=== PATIENT | male | born 1935 | race Caucasian/White ===

== ENCOUNTER 2016-07-06 17:01 | Inpatient (IN) | payer MEDICARE ==
--- NOTE | ~2016-07-06 | DS ---
Discharge Summary [id number] [place]. [address] NAME: MALISSA COSTA : 36 STATUS : DIS IN PAT#: [id number] AGE: 81 ADM/REG DATE : 07/06/16 MR#: [id number] REPORT SERV DATE: 07/11/16 DICTATED BY: CHIRAG LAND DATE: 07/10/16 REPORT STATUS : Draft TRANSCRIBED BY: MODL DATE: 07/10/16 ADMISSION DATE: 07/06/2016 DISCHARGE DATE: 07/10/2016 PROCEDURES DONE: 1. 07/06/2016, chest x-ray: Unstable chest x-ray. 2. 07/08/2016, CT scan without contrast, nonspecific subpleural fibrotic lung disease, chronic with patchy superimposed airspace consolidation involving the right lower lobe. No pleural effusion. Large chronic right-sided diaphragmatic hernia and hernia of the posterior right lung base across the posterior mediastinum into the left lower chest. The liver and duodenum are herniated into the right chest. T8 and T11 vertebral body compression fractures. 3. 07/09/2016, barium swallow study repeated episodes of silent aspiration with consistencies ranging from 10 to pudding. CONSULT: Dr. Fernández for Pulmonary. REASON FOR ADMISSION: Short of breath with bilateral ankle swelling x2 weeks. 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 The patient was sent for further evaluation of this bilateral ankle swelling and shortness of breath. A CT scan of the chest was done. There is herniation in the right side as well as on the left side of the lung. However, the herniation is more extensive on the right. Pulmonary was consulted for further evaluation. Dr. Fernández saw the patient. Recommendations by Pulmonary involved in-surgical intervention regarding the hernia. Unfortunately, the patient did decline any surgical options. In addition, the patient also has positive aspiration. Barium swallow study showed aspiration on all consistencies of thin to pudding consistency. Discussion with the family revolved around further treatment. However, family just wanted to have oxygen. The patient does not seem to want any further intervention regarding diaphragm hernia repair as well as a PEG tube placement for feeding purposes because of the aspiration. Both the son, daughter, and the patient is fully aware of the ramifications of not having treatment plan implemented. Therefore, the patient will be discharged to home with only oxygen. Recommend the patient follow up with Pulmonary within two weeks' time. In addition, we will have Case Management arranged for home oxygen. DISPOSITION: The patient is feeling fine, no complaints. ACTIVITIES: As tolerated. DIET: Regular. INSTRUCTION: The patient will follow up with Pulmonary within two weeks' time. Discharge Summary [address] [facility] [place]. [address] NAME: MALISSA COSTA : 37 STATUS : DIS IN [facility]#: [id number] AGE: 81 ADM/REG DATE : 07/06/16 MR#: [id number] REPORT SERV DATE: 07/11/16 DICTATED BY: CHIRAG LAND DATE: 07/10/16 REPORT STATUS : Draft TRANSCRIBED BY: ANTONELLA DATE: 07/10/16 MEDICATION UPON DISCHARGE: 1. Aspirin 81 mg p.o. q.h.s. 2. Lipitor 40 mg p.o. q.h.s. 3. Bumex 2 mg p.o. daily. 4. Bumex 2 mg p.o. daily p.r.n. 5. Iron 325 mg p.o. daily. 6. Synthroid 100 mcg p.o. daily. 7. Potassium 20 mEq b.i.d. 8. Albuterol two puffs q.4 hours p.r.n. 9. Oxycodone 05/325 one tab daily. DIAGNOSES UPON DISCHARGE: 1. Shortness of breath, bilateral ankle swelling secondary to restrictive lung disease. 2. 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 3. Congestive heart failure, not in acute exacerbation with preserved ejection fraction of 52%. 4. Thrombocytopenia. 5. Hypothyroid. 6. Status post redo coronary artery bypass graft, 2013. 7. Aortic stenosis, status post aortic valve replacement. 8. Sleep apnea. 9. History of hip fracture. 10.Hypothyroidism. 11.Hypertension. 12.Hyperlipidemia. URMILA/ANTONELLA Chirag Land MD / [id number] CC: MD Reynold Brady M.D.
--- NOTE | ~2016-07-06 | HP ---
History And Physical [address] [address] NAME: MALISSA COSTA : 36 STATUS : ADM IN [facility]#: [id number] AGE: 80 ADM/REG DATE : 07/06/16 MR#: [id number] REPORT SERV DATE: 07/06/16 DICTATED BY: TINO CHU DATE: 07/06/16 REPORT STATUS : Draft TRANSCRIBED BY: MODL DATE: 07/06/16 DATE OF ADMISSION: 07/06/2016 ADDENDUM PHYSICAL EXAMINATION: NECK: As he is having mild distress, not able to check the JVD. No nodes palpable. CHEST: He has coarse breathing sounds everywhere on both chest. CARDIOVASCULAR: Has a regular rhythm and rate. Hard to hear heart sounds because of the coarse breathing sounds. Has an aortic regurgitation murmur. ABDOMEN: Bowel sounds present. Soft. No organomegaly appreciated. No ascites appreciated. EXTREMITIES: He has a pitting edema in his both feet and up the ankle. Pulses are intact. LABORATORY: Showed a sodium 134, potassium 4.7, BUN 17, and creatinine 0.76. WBC 4.2, hemoglobin 14.2, hematocrit 43.6, and platelet 82. BNP 273.9. X-ray showed some vascular congestion. Electrocardiogram showed normal sinus rhythm. ASSESSMENT AND PLAN: 1. Acute hypoxic respiratory failure. 2. Status post redo CABG and aortic valve replacement in 2013. 3. Hypothyroidism. 4. Restrictive lung disease clinically. 5. Thrombocytopenia is chronic but is slightly worse. Overall the patient will be admitted to the hospital cardiac telemetry bed. We are going to obtain the echocardiogram to re-evaluate his left ventricle and also valve function since his last echocardiogram was in 2014, with ejection fraction 55% with normal functioning bioprosthetic aortic valve. Meanwhile, we will change his diuretics to IV diuretics and I will also use the bronchodilator and oxygen supplement. EKL/MODL Tino Chu M.D. / [id number] CC: MD Reynold Baker M.D. William Warren, M.D.
--- NOTE | ~2016-07-06 | CN ---
Consultation Report [address] [place]. [address] NAME: MALISSA CARTER : 36 STATUS : ADM IN PAT#: [id number] AGE: 81 ADM/REG DATE : 07/06/16 MR#: [id number] REPORT SERV DATE: 07/10/16 DICTATED BY: TESHA LANG DATE: 07/09/16 REPORT STATUS : Draft TRANSCRIBED BY: MODL DATE: 07/09/16 CONSULTATION REPORT DATE OF CONSULTATION: Dear Dr. Mayers: Thank you for requesting my opinion regarding evaluation and management of Mr. Malissa Carter. Mr. Carter is an extremely pleasant 81-year-old gentleman with a significant past medical history of coronary artery disease, status post CABG redo aortic valve replacement back in 2013 for prolonged hospitalization and came to the hospital with worsening shortness of breath and ankle swelling. The patient states that he has been intermittently compliant with his diuretics. The patient was seen recently and received doxycycline and prednisone with no significant improvement. However, when he arrived in the hospital he received additional diuretics and his ankle swelling has significantly improved as well as shortness of breath. He now states that he has mild shortness of breath at rest while localized to the chest, nonradiating, with no significant alleviating or exacerbating factors. REVIEW OF SYSTEMS: A detailed 14-point review of systems was completed. Pertinent positives and negatives are listed above. PAST MEDICAL HISTORY: 1. Cardiac bypass and redo in 2013. 2. Aortic stenosis status post AVR in 2013. 3. Sleep apnea. 4. History of hip fracture. 5. Hypothyroidism. 6. Congenital diaphragmatic abnormalities on the right side. 7. Hypertension. 8. Hyperlipidemia. 9. Postop atrial fibrillation. PAST SURGICAL HISTORY: 1. Appendectomy. 2. Cholecystectomy. 3. Cardiac surgeries as above. ALLERGIES: SULFA AND CLINDAMYCIN. SOCIAL HISTORY: The patient denies any history of smoking in the past. He denies any significant alcohol or illicit drug abuse. FAMILY HISTORY: No history of coronary artery disease. Consultation Report [id number] [place]. [address] NAME: MALISSA CARTER : 36 STATUS : ADM IN PAT#: [id number] AGE: 81 ADM/REG DATE : 07/06/16 MR#: [id number] REPORT SERV DATE: 07/10/16 DICTATED BY: TESHA LANG DATE: 07/09/16 REPORT STATUS : Draft TRANSCRIBED BY: ANTONELLA DATE: 07/09/16 HOME MEDICATIONS: Reviewed and located in the paper chart. PHYSICAL EXAMINATION: VITAL SIGNS: Afebrile, T-current 98, pulse 2 L nasal cannula 94% FiO2, 109/63. GENERAL: No acute distress. Able to communicate in full paragraphs at a time. HEENT: Normocephalic and atraumatic. Left pupil is round, reactive to light and accommodation. Right-sided prosthetic eye. Posterior oropharynx is clear. NECK: Thin neck. No JVD. CARDIOVASCULAR: Regular rate and rhythm. S1 and S2 present. LUNGS: Clear breath sounds bilaterally. ABDOMEN: Nontender, nondistended. Soft. Positive bowel sounds. EXTREMITIES: No clubbing, cyanosis, or edema. SKIN: No new rashes, lesions, or ulcers. PSYCHIATRIC: Alert and oriented x3. Appropriate mood and affect. Appropriate insight and judgment. NEUROLOGIC: 5/5 strength in upper and lower extremities. Cranial nerves II through XII intact. Gait not tested. DTRs not performed. LABORATORY DATA: White count 3.6, hemoglobin of 14, and platelet count of 81. Procalcitonin negative. Creatinine of 0.83. A pH of 7.39, PaCO2 of 68, PaO2 of 97. IMAGIN. Chest CT performed on 07/08/2016 was personally reviewed by me. I agree with the following interpretation. Nonspecific subpleural fibrotic lung disease and chronic patchy superimposed airspace consolidation in the right lung and pleural effusion. 2. Large chronic right-sided diaphragmatic hernia and hernia as well of the posterior right lung base area and the posterior mediastinum into the left lower of the chest. Liver and duodenum are herniated into the right chest. 3. T8 and T11 vertebral body compression fractures. 4. Minimal amounts of mucous secretions or aspirated materials in the left mainstem. The CT scan has been personally reviewed by me. I agree with the above interpretation. ASSESSMENT AND PLAN: Mr. Malissa Carter is an extremely pleasant 81-year-old gentleman with a significant past medical history of severe coronary artery disease, status post CABG and redo obstructive sleep apnea, currently not on CPAP and lifelong nonsmoker who presents to [facility] with worsening shortness of breath and bilateral lower leg swelling. The patient's dyspnea significantly improved after diuresis. CT scan of the chest did demonstrate diaphragmatic hernia as well as possible aspirated materials in the left mainstem versus secretions. After carefully discussing these issues with Mr. Carter, he would like the following to occur: 1. The patient declined thoracic surgical intervention citing his age and his lack of desire for surgical options. Consultation Report [facility] [address] [place]. [address] NAME: MALISSA CARTER : 37 STATUS : ADM IN PAT#: [id number] AGE: 81 ADM/REG DATE : 07/06/16 MR#: [id number] REPORT SERV DATE: 07/10/16 DICTATED BY: TESHA LANG DATE: 07/09/16 REPORT STATUS : Draft TRANSCRIBED BY: ANTONELLA DATE: 07/09/16 2. The patient is willing to return back to Sleep Medicine doctor. We discussed in detail potential options and would like to follow up with Dr. Jamison Whitten here in the [facility]. 3. Outpatient pulmonary consultation with Dr. Leonardo Reyes. 4. Continue diuresis. 5. Home O2 evaluation. 6. Home bronchodilators to include albuterol MDI and nebulizer therapy. 7. Aspiration precautions and modified MBS as already ordered. 8. I will follow along with you. Thank you for allowing me to participate in Mr. Carter' care. KYREE/ANTONELLA Tesha Lang M.D. / [id number] CC: MD Reynold Brady M.D.
--- NOTE | ~2016-07-06 | HP ---
History And Physical [address] [place]. [address] NAME: MALISSA COSTA : 37 STATUS : ADM IN [facility]#: [id number] AGE: 80 ADM/REG DATE : 07/06/16 MR#: [id number] REPORT SERV DATE: 07/06/16 DICTATED BY: TINO MAYERS DATE: 07/06/16 REPORT STATUS : Draft TRANSCRIBED BY: MODL DATE: 07/06/16 DATE OF ADMISSION: 07/06/2016 CHIEF COMPLAINT: Short of breath and both ankle swelling about two weeks. HISTORY OF PRESENT ILLNESS: This is a 80-year-old male patient, who does have significant cardiac history with CABG redo and aortic valve replacement back in 2013 with prolonged hospitalization, came to the hospital at this time with short of breath and both ankle swelling. He said he was here 4 days ago with the same problem. At that time, he was given doxycycline and prednisone and he went home, did not get any better, and last night he was not getting any breath even if he is at rest, so he had to come back to the hospital today. Normally he does not have orthopnea but he developed orthopnea last night. He was not able to sleep at all the whole night. He does not wear the oxygen normally but EMS arrived at his house, his oxygen was 86% on room air. Three weeks ago, he saw Dr. Crews as a regular checkup. At that time, Dr. Crews recommended that he is taking daily Bumex rather than as needed; however, he did not want to go to the bathroom very frequently, so he did not take it on a daily basis either. He was supposed to take Bumex 2 mg once a day every day. He lives with his who has had a Parkinson's and he gets around very well. He still drives his car short distance and he does not cook but he also lost 50 pounds after the surgery. The last time he was here was in 2014, he developed anemia with GI bleed and since then, he has stayed at home without any problem. Did not have any new medical condition or surgery or hospitalization. REVIEW OF SYSTEMS: He does have a dry cough. If the cough does not come out, he feels very short of breath and orthopnea. Denies any chest pain. Denies any nausea or vomiting. No constipation or diarrhea. All other systems reviewed and negative. PAST MEDICAL HISTORY: 1. Cardiac bypass and had a redo bypass in 2013. 2. Aortic stenosis, status post aortic valve replacement in 2013. 3. Sleep apnea. 4. History of hip fracture. History And Physical [address] [address] NAME: MALISSA COSTA : 37 STATUS : ADM IN PAT#: [id number] AGE: 80 ADM/REG DATE : 07/06/16 MR#: [id number] REPORT SERV DATE: 07/06/16 DICTATED BY: TINO MAYERS DATE: 07/06/16 REPORT STATUS : Draft TRANSCRIBED BY: MODL DATE: 07/06/16 5. Hypothyroidism. 6. Congenital diaphragmatic abnormalities on the right side of the diaphragm. 7. Hypertension. 8. Hyperlipidemia. 9. Postop atrial fibrillation. PAST SURGICAL HISTORY: 1. Appendectomy. 2. Cholecystectomy. 3. Again a cardiac bypass redo and aortic valve replacement. ALLERGIES: HE IS ALLERGIC TO SULFA AND CLINDAMYCIN. SOCIAL HISTORY: Denies any smoking history in the past and also denies any current smoking or drinking. He lives with his and does not require any walker or walking aids. FAMILY HISTORY: There is no family history for early coronary disease that is noncontributory for this condition. MEDICATIONS AT HOME: 1. ProAir as needed. 2. Aspirin 81 mg once a day. 3. Lipitor 40 mg once at nighttime. 4. Bumex 2 mg once in the morning time and also 2 mg as needed for fluid retention. 5. Doxycycline 100 mg twice a day which was given on 07/03/2016, along with prednisone 20 mg twice a day from the emergency visit. 6. Ferrous sulfate 325 mg once a day. 7. Synthroid 100 mcg once a day. 8. Endocet 5/325 one tablet every morning. 9. Potassium 20 mEq twice a day. PHYSICAL EXAMINATION: VITAL SIGNS: Blood pressure is 145/73, temperature is 98.4, pulse is 84, respiration was 18, and saturation was 86% on room air, now at 99% with 2 L of oxygen. GENERAL APPEARANCE: He is an elderly gentleman, having mild respiratory distress. HEENT: Pupils are equal. DICTATION ENDS HERE EKL/MODL Tino Mayers M.D. History And Physical [address] [address] NAME: MALISSA COSTA : 37 STATUS : ADM IN PAT#: [id number] AGE: 80 ADM/REG DATE : 07/06/16 MR#: [id number] REPORT SERV DATE: 07/06/16 DICTATED BY: TINO MAYERS DATE: 07/06/16 REPORT STATUS : Draft TRANSCRIBED BY: MODL DATE: 07/06/16 / [id number] CC: MD Reynold Baker M.D.
[2016-07-06 15:24] LABS: BASOPHILS 0.5 %; BASOPHILS ABSOLUTE 0.02 10/3/uL (0.0-0.16); EOSINOPHILS 0 %; ER CBC TAT 0 Hrs 08 Mins; HEMATOCRIT 43.6 % (40.0-51.0); HEMOGLOBIN 14.2 g/dL (13.6-17.8); IMMATURE GRANULOCYTES 0.2 %; IMMATURE GRANULOCYTES ABSOLUTE 0.01 10/3/uL (0.0-0.11); LYMPHOCYTES 10.8 %; LYMPHOCYTES ABSOLUTE 0.45 10/3/uL (0.67-4.30); MANUAL DIFF NO %; MEAN CORPUS HGB CONC 32.6 g/dL (32.0-36.0); MEAN CORPUSCULAR HEMOGLOB 31.8 pg (26.0-34.0); MEAN CORPUSCULAR VOLUME 97.8 fL (80-100); MEAN PLATELET VOLUME 10.5 fL (9.2-13.0); MONOCYTES 9.6 %; NEUTROPHILS 78.9 %; NEUTROPHILS ABSOLUTE 3.28 10/3/uL (2.02-8.40); PLATELET COUNT 82 10/3/uL (150-400); RED CELL COUNT 4.46 10/6/uL (4.7-6.1); WHITE BLOOD CELLS 4.2 10/3/uL (4.5-10.5)
[2016-07-06 15:36] LABS: INTERNATIONAL NORMAL RATI 1.3 UNITS (-); PARTIAL THROMBO TIME 23.5 SEC (22.5-37.2); PROTIME (NOT ORD) 15.9 SEC (12.0-14.5)
[2016-07-06 15:42] LABS: BUN (BLOOD UREA NITROGEN) 17 MG/DL (6-23); CALCIUM, SERUM 9.1 MG/DL (8.5-10.4); CHEST PAIN PROFILE TAT 0 Hrs 26 Mins; CHLORIDE, SERUM 100 MMOL/L (96-112); CO2 (CARBON DIOXIDE) 27 MMOL/L (24-34); CREATININE 0.76 MG/DL (0.70-1.30); GFR AFRICAN AMERICAN 101 ML/MIN (>=60); GFR NON AFRICAN AMERICAN 87 ML/MIN (>=60); GLUCOSE, SERUM 107 MG/DL (60-99); POTASSIUM, SERUM 4.7 MMOL/L (3.5-5.3); SODIUM, SERUM 134 MMOL/L (135-148); TROPONIN I <0.02 NG/ML (<0.05)
[~2016-07-06 17:01] MED LIST: ADVAIR PO; ADVAIR230P INH; ADVAIR250 INH; ALEVE220 MG PO; ASAB PO; ATEN25 PO; BUM2 PO; CORDARONE PO; ENDOCET1 TAB PO; FERROUS SULF325 M1 PO; FESO4 PO; FISH OIL1200 MG PO; FLUTICASONE PO; HALF81 PO; KDUR20 PO; KLOR-CON M2020 MEQ PO; LEVOTHYROXIN88 MCG PO; LIPITOR10 PO; LIPITOR40 PO; LOP25 PO; MONODOX100 MG PO; NITROSTAT0.4 MG SL; P20 PO; POTASSIUM RX PO; PROVHFA INH; REFRESH OPH; REFRESH1 % OP; ROLAIDS PO; SALMETEROL PO; SYN.025B PO; SYN1 PO; SYN88 PO; T PO; VICKS VAPORUB TOP
[2016-07-06 20:02] LABS: ULTRASENSITIVE TSH 0.006 MCIU/ML (0.358-3.740)
[2016-07-07 04:27] LABS: BASOPHILS 0.4 %; BASOPHILS ABSOLUTE 0.02 10/3/uL (0.0-0.16); EOSINOPHILS 0.2 %; EOSINOPHILS ABSOLUTE 0.01 10/3/uL (0.0-0.53); HEMATOCRIT 42.4 % (40.0-51.0); HEMOGLOBIN 13.9 g/dL (13.6-17.8); IMMATURE GRANULOCYTES 0.2 %; IMMATURE GRANULOCYTES ABSOLUTE 0.01 10/3/uL (0.0-0.11); LYMPHOCYTES ABSOLUTE 0.81 10/3/uL (0.67-4.30); MEAN CORPUS HGB CONC 32.8 g/dL (32.0-36.0); MEAN CORPUSCULAR HEMOGLOB 31.7 pg (26.0-34.0); MEAN CORPUSCULAR VOLUME 96.8 fL (80-100); MEAN PLATELET VOLUME 10.6 fL (9.2-13.0); MONOCYTES 14.6 %; MONOCYTES ABSOLUTE 0.66 10/3/uL (0.21-1.20); NEUTROPHILS 66.6 %; PLATELET COUNT 97 10/3/uL (150-400); RBC DISTRIBUTION WIDTH 14.2 % (12.0-16.0); RED CELL COUNT 4.38 10/6/uL (4.7-6.1); WHITE BLOOD CELLS 4.5 10/3/uL (4.5-10.5)
[2016-07-07 04:28] LABS: MANUAL DIFF NO %
[2016-07-07 04:43] LABS: A/G RATIO 0.7 (0.7-1.9); BUN (BLOOD UREA NITROGEN) 17 MG/DL (6-23); CALCIUM, SERUM 8.8 MG/DL (8.5-10.4); CHLORIDE, SERUM 97 MMOL/L (96-112); CREATININE 0.77 MG/DL (0.70-1.30); GFR AFRICAN AMERICAN 100 ML/MIN (>=60); GFR NON AFRICAN AMERICAN 86 ML/MIN (>=60); GLOBULIN 4.4 G/DL (2.5-4.1); GLUCOSE, SERUM 99 MG/DL (60-99); POTASSIUM, SERUM 3.8 MMOL/L (3.5-5.3); SGOT(AST) 47 U/L (5-40); SGPT(ALT) 24 U/L (5-65); TOTAL BILIRUBIN 0.9 MG/DL (0-1.2); TOTAL PROTEIN 7.4 G/DL (6.0-8.5)
[2016-07-07 04:44] LABS: ALKALINE PHOSPHATASE 112 U/L (45-117); CO2 (CARBON DIOXIDE) 40 MMOL/L (24-34); SODIUM, SERUM 141 MMOL/L (135-148)
[2016-07-07 06:09] LABS: CARBOXYHEMOGLOBIN 1.6 % (0-3); DEVICE NC; HCO3 (ACTUAL BICARBONATE) 40.1 MEQ/L (23-27); HEMOBLOGIN CONTENT 14.4 G/DL (14-18); INSTRUMENT SERIAL # 8087; METHEMOGLOBIN 0.3 % (0-3); O2 CONTENT 19.5 VOL% (18-24); OPERATOR ID 17537; PCO2 (CO2 TENSION) 68 MMHG (35-45); PO2 (O2 TENSION) 97 MMHG (79-93); SAMPLE Arterial; pH 7.39 (7.37-7.43)
[2016-07-08 06:35] LABS: BASOPHILS 0.4 %; BASOPHILS ABSOLUTE 0.02 10/3/uL (0.0-0.16); EOSINOPHILS 1.8 %; EOSINOPHILS ABSOLUTE 0.09 10/3/uL (0.0-0.53); HEMOGLOBIN 14.7 g/dL (13.6-17.8); IMMATURE GRANULOCYTES 0.2 %; IMMATURE GRANULOCYTES ABSOLUTE 0.01 10/3/uL (0.0-0.11); LYMPHOCYTES 19.2 %; LYMPHOCYTES ABSOLUTE 0.95 10/3/uL (0.67-4.30); MEAN CORPUSCULAR HEMOGLOB 31.4 pg (26.0-34.0); MEAN CORPUSCULAR VOLUME 98.3 fL (80-100); MEAN PLATELET VOLUME 10.7 fL (9.2-13.0); MONOCYTES 15.5 %; MONOCYTES ABSOLUTE 0.77 10/3/uL (0.21-1.20); NEUTROPHILS 62.9 %; NEUTROPHILS ABSOLUTE 3.12 10/3/uL (2.02-8.40); PLATELET COUNT 86 10/3/uL (150-400); RBC DISTRIBUTION WIDTH 13.9 % (12.0-16.0); RED CELL COUNT 4.68 10/6/uL (4.7-6.1)
[2016-07-08 06:36] LABS: MANUAL DIFF NO %
[2016-07-08 06:54] LABS: A/G RATIO 0.7 (0.7-1.9); ALBUMIN 2.9 G/DL (3.5-5.0); ALKALINE PHOSPHATASE 109 U/L (45-117); BUN (BLOOD UREA NITROGEN) 18 MG/DL (6-23); CALCIUM, SERUM 8.6 MG/DL (8.5-10.4); CHLORIDE, SERUM 91 MMOL/L (96-112); CREATININE 0.91 MG/DL (0.70-1.30); GFR AFRICAN AMERICAN 92 ML/MIN (>=60); GFR NON AFRICAN AMERICAN 79 ML/MIN (>=60); GLOBULIN 4.4 G/DL (2.5-4.1); GLUCOSE, SERUM 86 MG/DL (60-99); POTASSIUM, SERUM 3.5 MMOL/L (3.5-5.3); SGOT(AST) 42 U/L (5-40); SGPT(ALT) 21 U/L (5-65); SODIUM, SERUM 139 MMOL/L (135-148); T3 UPTAKE 38 % (30-45); T4 (THYROXINE) TOTAL 10.7 MCG/DL (4.5-12.0); TOTAL BILIRUBIN 1.3 MG/DL (0-1.2); TOTAL PROTEIN 7.3 G/DL (6.0-8.5)
[2016-07-08 06:55] LABS: CO2 (CARBON DIOXIDE) 42 MMOL/L (24-34)
[2016-07-09 05:28] LABS: BASOPHILS 0 %; EOSINOPHILS 0 %; HEMATOCRIT 42.4 % (40.0-51.0); HEMOGLOBIN 14.1 g/dL (13.6-17.8); LYMPHOCYTES 8.7 %; LYMPHOCYTES ABSOLUTE 0.31 10/3/uL (0.67-4.30); MEAN CORPUS HGB CONC 33.3 g/dL (32.0-36.0); MEAN CORPUSCULAR HEMOGLOB 31.7 pg (26.0-34.0); MEAN PLATELET VOLUME 10.6 fL (9.2-13.0); MONOCYTES 2.5 %; MONOCYTES ABSOLUTE 0.09 10/3/uL (0.21-1.20); NEUTROPHILS 88.8 %; NEUTROPHILS ABSOLUTE 3.16 10/3/uL (2.02-8.40); PLATELET COUNT 81 10/3/uL (150-400); RBC DISTRIBUTION WIDTH 13.5 % (12.0-16.0); RED CELL COUNT 4.45 10/6/uL (4.7-6.1); WHITE BLOOD CELLS 3.6 10/3/uL (4.5-10.5)
[2016-07-09 05:29] LABS: MANUAL DIFF NO %; MEAN CORPUSCULAR VOLUME 95.3 fL (80-100)
[2016-07-09 05:41] LABS: A/G RATIO 0.6 (0.7-1.9); ALBUMIN 2.6 G/DL (3.5-5.0); ALKALINE PHOSPHATASE 98 U/L (45-117); BUN (BLOOD UREA NITROGEN) 20 MG/DL (6-23); CALCIUM, SERUM 8.8 MG/DL (8.5-10.4); CHLORIDE, SERUM 89 MMOL/L (96-112); CREATININE 0.83 MG/DL (0.70-1.30); GFR AFRICAN AMERICAN 96 ML/MIN (>=60); GFR NON AFRICAN AMERICAN 83 ML/MIN (>=60); GLOBULIN 4.4 G/DL (2.5-4.1); POTASSIUM, SERUM 3.9 MMOL/L (3.5-5.3); SGOT(AST) 31 U/L (5-40); SGPT(ALT) 21 U/L (5-65); SODIUM, SERUM 137 MMOL/L (135-148); TOTAL BILIRUBIN 1.2 MG/DL (0-1.2)
[2016-07-09 05:42] LABS: CO2 (CARBON DIOXIDE) 42 MMOL/L (24-34); GLUCOSE, SERUM 161 MG/DL (60-99)
[2016-07-10 03:52] LABS: BASOPHILS 0 %; EOSINOPHILS 0 %; HEMATOCRIT 44.3 % (40.0-51.0); HEMOGLOBIN 14.6 g/dL (13.6-17.8); IMMATURE GRANULOCYTES 0.2 %; IMMATURE GRANULOCYTES ABSOLUTE 0.02 10/3/uL (0.0-0.11); LYMPHOCYTES 4.5 %; LYMPHOCYTES ABSOLUTE 0.46 10/3/uL (0.67-4.30); MEAN CORPUSCULAR HEMOGLOB 31.6 pg (26.0-34.0); MEAN CORPUSCULAR VOLUME 95.9 fL (80-100); MEAN PLATELET VOLUME 11.1 fL (9.2-13.0); MONOCYTES 3.3 %; MONOCYTES ABSOLUTE 0.34 10/3/uL (0.21-1.20); NEUTROPHILS ABSOLUTE 9.36 10/3/uL (2.02-8.40); RBC DISTRIBUTION WIDTH 13.3 % (12.0-16.0); RED CELL COUNT 4.62 10/6/uL (4.7-6.1)
[2016-07-10 04:05] LABS: MANUAL DIFF NO %; PLATELET COUNT 118 10/3/uL (150-400); WHITE BLOOD CELLS 10.2 10/3/uL (4.5-10.5)
[2016-07-10 04:07] LABS: A/G RATIO 0.6 (0.7-1.9); ALBUMIN 2.8 G/DL (3.5-5.0); ALKALINE PHOSPHATASE 88 U/L (45-117); CALCIUM, SERUM 9.3 MG/DL (8.5-10.4); CHLORIDE, SERUM 86 MMOL/L (96-112); CREATININE 0.85 MG/DL (0.70-1.30); GFR AFRICAN AMERICAN 95 ML/MIN (>=60); GFR NON AFRICAN AMERICAN 82 ML/MIN (>=60); GLOBULIN 4.4 G/DL (2.5-4.1); GLUCOSE, SERUM 152 MG/DL (60-99); PHOSPHORUS, SERUM 3.1 MG/DL (2.5-4.5); POTASSIUM, SERUM 4.5 MMOL/L (3.5-5.3); SGPT(ALT) 18 U/L (5-65); SODIUM, SERUM 134 MMOL/L (135-148); TOTAL BILIRUBIN 1.1 MG/DL (0-1.2); TOTAL PROTEIN 7.2 G/DL (6.0-8.5)
[2016-07-10 04:09] LABS: BUN (BLOOD UREA NITROGEN) 25 MG/DL (6-23); CO2 (CARBON DIOXIDE) > 45 MMOL/L (24-34); SGOT(AST) 34 U/L (5-40)
[2016-07-10 15:09] LABS: INTERNATIONAL NORMAL RATI 1.3 UNITS (-); PARTIAL THROMBO TIME 26.5 SEC (22.5-37.2); PROTIME (NOT ORD) 15.6 SEC (12.0-14.5)
[2016-07-10] MEDS ORDERED: ALBUTEROL0.083 % INH (19:56)
[2016-09-18] MEDS ORDERED: BREO ELLIPTA 21 EACH INH (20:42)
[2016-09-18] MEDS ORDERED: LOP25 PO (20:43)
[2016-09-18] MEDS ORDERED: SINGULAIR1 PO (20:43)
[2016-09-18] MEDS ORDERED: FLONASE NAS (20:43)
== END 2016-07-10 21:39 | disposition home or self-care (01) | DRG 189 ==
LOC: ER 17:01 → 7NO 17:10
PROVIDERS: Emergency Medicine; Hospitalist; Internal Medicine
DX: J96.01 Acute respiratory failure with hypoxia (principal); Q79.1 Other congenital malformations of diaphragm; I50.32 Chronic diastolic (congestive) heart failure; D69.6 Thrombocytopenia, unspecified; J45.909 Unspecified asthma, uncomplicated; K76.89 Other specified diseases of liver; J40 Bronchitis, not specified as acute or chronic; E03.9 Hypothyroidism, unspecified; I25.10 Atherosclerotic heart disease of native coronary artery without angina pectoris; I25.2 Old myocardial infarction; J84.10 Pulmonary fibrosis, unspecified; D64.9 Anemia, unspecified; E78.5 Hyperlipidemia, unspecified; Z95.1 Presence of aortocoronary bypass graft; Z95.2 Presence of prosthetic heart valve; Z90.49 Acquired absence of other specified parts of digestive tract; Z88.2 Allergy status to sulfonamides; Z88.1 Allergy status to other antibiotic agents; Z79.82 Long term (current) use of aspirin; Z95.5 Presence of coronary angioplasty implant and graft; Z79.899 Other long term (current) drug therapy
CPT/HCPCS: 36600; 71020; 71250; 74230; 80048; 80053; 82805; 83735; 83880; 84100; 84145; 84436; 84443; 84479; 84484; 85025; 85610; 85730; 87040; 87070; 87205; 92611-GN; 93005; 94640; 94660; 94668; 96374; 99285; A9270-GY; C8929; J1940; J2920; Q9957